=== PATIENT | female | born 1995 | race Caucasian/White ===

== ENCOUNTER 2021-09-15 13:48 | Outpatient (CLI) | payer OTHER, SELFPAY | END 2021-09-15 13:49 | disposition home or self-care (01) | LOC: ANHAUDIO 13:51 | PROVIDERS: Referring Provider Nurse Practitioner Family; Visit Provider Nurse Practitioner Family | DX: H91.92 Unspecified hearing loss, left ear (principal) | CPT/HCPCS: 92557; 92567 ==

== ENCOUNTER 2021-12-27 09:27 | Outpatient (CLI) | payer OTHER, SELFPAY ==
--- NOTE | ~2021-12-27 | US_ITS ---
EXAMINATION: US thyroid DATE: 12/27/2021 10:04 INDICATION: Goiter. . TECHNIQUE: Multiple ultrasound images of the thyroid were obtained. COMPARISON: None. FINDINGS: The right thyroid lobe measures 6.9 x 3.2 x 2.7 cm. The left thyroid lobe measures 6.5 x 2.2 x 3.5 c m. The thyroid demonstrates diffusely heterogeneous hypoechogenicity. Vascularity is increased. IMPRESSION: 1. Heterogeneous, hypervascular thyroid, likely chronic lymphocytic (Brady) thyroiditis. Reviewed, dictated and finalized at location A.
== END 2021-12-27 09:28 | disposition home or self-care (01) ==
LOC: ANHIMG 09:31
PROVIDERS: PCP Nurse Practitioner Family; Visit Provider Nurse Practitioner Family
DX: E04.9 Nontoxic goiter, unspecified (principal)
CPT/HCPCS: 76536

== ENCOUNTER 2022-02-26 13:00 | Outpatient (RCR) | payer OTHER, SELFPAY | END 2022-02-26 23:59 | disposition home or self-care (01) | LOC: ANHAUDIO 13:00 | PROVIDERS: PCP Nurse Practitioner Family; Visit Provider Nurse Practitioner Family | DX: Z46.1 Encounter for fitting and adjustment of hearing aid (principal) | CPT/HCPCS: V5160; V5261 ==

== ENCOUNTER 2022-12-03 13:51 | Outpatient (RCR) | payer OTHER, SELFPAY | END 2023-03-03 23:59 | disposition home or self-care (01) | LOC: ANHLAB 13:51 | PROVIDERS: PCP Nurse Practitioner Family; Visit Provider Obstetrics & Gynecology | DX: N91.2 Amenorrhea, unspecified (principal) | CPT/HCPCS: 36415; 84702 ==

== ENCOUNTER 2022-12-23 19:51 | Emergency (ER) | payer OTHER, SELFPAY ==
[2022-12-23 19:54] VITALS: BP 122/64; PULSE 125; RESP 18; TEMP 36.8; O2SAT 100
--- NOTE | 2022-12-23 20:22 | ECG_ITS ---
Measurements Intervals [place] Rate: 107 P: -14 NV: 132 QRS: -37 QRSD: 104 T: 46 QT: 346 QTc: 462 Interpretive Statements SINUS TACHYCARDIA LEFT ANTERIOR FASCICULAR BLOCK ABNORMAL ECG NO PREVIOUS ECG AVAILABLE FOR COMPARISON Electronically Signed On 12-24-2022 10:21:47 CDT by Erick Garza M.D.
[2022-12-23 20:23] VITALS: BP 116/51; PULSE 116; RESP 16; O2SAT 100
[2022-12-23 20:30] LABS: Basophils Percent Auto 0.2 % (0.2-1.2); Eosinophils Percent Auto 0.2 % (0-4.4); Hematocrit 40.8 % (37.0-47.0); Hemoglobin 13.9 g/dL (12.0-15.0); Immature Granulocyte Absolute 0.03 K/mm3 (0.00-0.031); Immature Granulocyte Percent A 0.3 % (0-0.5); Lymphocytes Absolute Auto 1.55 K/mm3 (0.9-3.2); Lymphocytes Percent Auto 16.9 % (18.3-44.2); Mean Corpuscular HGB Conc 34.1 g/dl (32-36); Mean Corpuscular Hemoglobin 27.7 pg (26-34); Mean Corpuscular Volume 81.4 fl (80-100); Mean Platelet Volume 10.3 fl (7.4-10.4); Monocytes Absolute Auto 0.6 K/mm3 (0.1-0.6); Monocytes Percent Auto 6.8 % (2.6-8.5); Neutrophils Absolute Auto 6.9 K/mm3 (1.3-6.7); Neutrophils Percent Auto 75.6 % (45.5-73.1); Platelet Count Result 249 k/mm3 (150-375); Red Blood Count 5.01 M/mm3 (4.2-5.4); Red Cell Distribution Width 13.2 % (11.5-14.5); White Blood Count 9.2 K/mm3 (4.5-10.0)
[2022-12-23] MEDS: SODIUM CHLORIDE 0.9% IV 1,000 ML 999 ML IV CONT ×2 (20:30→21:56)
[2022-12-23] MEDS: diphenhydrAMINE HCl INJ 50 MG/ML VIAL 25 MG IV PUSH (20:30)
[2022-12-23] MEDS: METOCLOPRAMIDE HCL INJ 10 MG/2 ML VIAL IV PUSH (20:30)
--- NOTE | 2022-12-23 20:30 | ED.GENADULT ---
HPI - General Adult General Chief complaint: Nausea/Vomiting/Diarrhea Stated complaint: 9 weeks /vomiting Time Seen by Provider: 12/23/22 20:13 Source: patient Mode of arrival: ambulatory Limitations: no limitations History of Present Illness HPI narrative: This is a 27-year-old female who is about 9 weeks and presents to the ED with chief complaint of nausea/vomiting onset today. Patient states that this has been an ongoing problem for the past several weeks. States her OB has had her on Reglan which has helped but she has been unable to take anything by mouth today. States her last meal was last night. Reports some upper abdominal cramping, feels it is due to all the retching today. States she has had a episode of emesis almost every 30 minutes. She reports additional complaints of headache but has been unable to take Tylenol. Denies fevers, chills, chest pain, shortness of breath, diarrhea, cough. Denies vaginal symptoms. Denies urinary symptoms. Related Data Allergies Allergy/AdvReac Type Severity Reaction Status Date / Time Penicillins Allergy Rash Verified 12/23/22 19:53 Review of Systems Review of Systems: CONSTITUTIONAL: Denies fever, chills, or sweats. EYES: Denies visual changes, redness, or discharge. ENT: Denies rhinorrhea, congestion, sore throat, or otalgia. CARDIOVASCULAR: Denies chest pain, palpitations, or edema. RESPIRATORY: Denies cough or dyspnea. GASTROINTESTINAL: Denies abdominal pain, nausea, vomiting, or diarrhea. GENITOURINARY: Denies dysuria or hematuria. SKIN: Denies rash or itching. MUSCULOSKELETAL: Denies back pain, joint pain, or myalgia. NEUROLOGIC: Denies headache, numbness, dizziness, or weakness. PSYCHIATRIC: Denies anxiety or depression. [facility] Surgical History Surgical History (Updated 09/26/21 @ 13:17 by Jayne Moreno MA) H/O gynecological procedure Nexplanon insertion H/O reconstruction of anterior cruciate ligament tear History of tonsillectomy and adenoidectomy S/P middle ear reconstruction Family History Family History (Updated 09/26/21 @ 13:15 by Jayne Moreno MA) Other Depression Diabetes mellitus Hypertension Exam Narrative: GENERAL: Appears ill. Appears dry. HEAD: Normocephalic, atraumatic. EYES: PERRLA and EOMI. ENT: Nares clear, no rhinorrhea or epistaxis. Mucous membranes moist. Oropharynx without tonsillar hypertrophy exudate or other lesions. NECK: Supple. No adenopathy or masses. CHEST: No respiratory distress. Clear to auscultation. No wheezes rales or rhonchi HEART: Tachycardic rate to 125. Regular rhythm. No murmur heard. Normal peripheral pulses. ABDOMEN: Soft, nontender, nondistended, normal active bowel sounds. MSK: Normal range of motion. No edema. SKIN: Warm, dry, no rash. NEURO: Alert and oriented x3. No focal deficits. PSYCH: Normal mood and affect. Course Course Emergency Course: Reevaluation 2120: Patient feeling much better, headache improved and not feeling as nauseous. Vital Signs Vital signs: Vital Signs Temperature 98.3 F 12/23/22 19:54 Pulse Rate 125 H 12/23/22 19:54 Respiratory Rate 18 12/23/22 19:54 Blood Pressure 122/64 12/23/22 19:54 Pulse Oximetry 100 12/23/22 19:54 Oxygen Delivery Room Air 12/23/22 19:54 Temperature 98.3 F 12/23/22 19:54 Pulse Rate 115 H 12/23/22 21:56 Respiratory Rate 16 12/23/22 21:56 Blood Pressure 105/50 L 12/23/22 21:24 Pulse Oximetry 100 12/23/22 21:56 Oxygen Delivery Room Air 12/23/22 19:54 Medical Decision Making MDM Narrative Medical decision making narrative: This is a 27-year-old female who is 9 weeks and presents to the ED with chief complaint of nausea and vomiting along with a headache. Vitals are initially stable but show tachycardia to 125. She appears dry on exam. Otherwise exam is benign. Lab work is largely unremarkable. Urinalysis has bacteria and white cells but is contaminated. Cult
[2022-12-23 20:41] LABS: Alanine Aminotransferase 23 U/L (6-35); Albumin Level 4.1 g/dL (3.5-5.1); Alkaline Phosphatase 87 U/L (38-126); Anion Gap 7 mmol/L (8-16); Aspartate Amino Transferase 25 U/L (14-36); Bilirubin,Total 0.7 mg/dL (0.2-1.3); Blood Urea Nitrogen 13 mg/dL (7-17); Calcium 8.9 mg/dL (8.4-10.2); Carbon Dioxide 26 mmol/L (22-30); Chloride 103 mmol/L (98-107); Estimated CRCL calculation 260 ml/min; Estimated Glomerular Filt Rate > 60; Glucose 101 mg/dL (65-110); Lipase 39 U/L (23-300); Potassium 3.8 mmol/L (3.4-5.0); Sodium 136 mmol/L (137-145)
[2022-12-23 21:06] LABS: Appearance Urine Turbid (Clear); Bacteria Urine 4+ /hpf; Bilirubin Urine Negative (Negative); Color Urine Yellow (Yellow); Glucose Urine UA Negative (Negative); Ketones Urine 2+ mg/dL (Negative); Leukocyte Esterase Ur 2+ LEU/UL (Negative); Mucus Urine Present /lpf; Need Manual Microscopic Reviewed; Nitrate Urine Negative (Negative); Protein Urine 2+ mg/dL (Negative); Specific Grav Ur 1.027 (1.001-1.035); Squamous Epithelial Cell Urine Many /hpf (Few); WBC Urine >100 /hpf
[2022-12-23 21:07] LABS: Add Urine Microscopic? YES
[2022-12-23 21:24] VITALS: BP 105/50
[2022-12-23 21:56] VITALS: PULSE 115; RESP 16; O2SAT 100
== END 2022-12-23 23:16 | disposition home or self-care (01) ==
PROVIDERS: Emergency Provider Physician Assistant; PCP Nurse Practitioner Family
DX: O21.0 Mild hyperemesis gravidarum (principal); Z3A.09 9 weeks gestation of pregnancy
CPT/HCPCS: 36415; 80053; 81001; 83690; 85025; 87077; 87086; 87088; 93005; 96361; 96365; 96375; 99284; J0131; J1200; J2765; J7030

== ENCOUNTER 2023-02-14 08:43 | Emergency (ER) | payer OTHER, SELFPAY ==
--- NOTE | ~2023-02-14 | US_ITS ---
EXAMINATION: US OB limited DATE: 02/14/2023 10:13 INDICATION: Right lower quadrant abdominal pain during second trimester . Ovarian cyst. TECHNIQUE: Real-time ultrasound of the pelvis was performed. The interpreting radiologist was not pre sent for the study. COMPARISON: None. FINDINGS: There are 2 living fetuses with thick membrane consistent with a dichorionic diamniotic pr egnancy. Fetus A is positioned on the maternal left and closer to the cervix in breech presentation. Fetus B is on the maternal right, closer to the fundus and in vertex presentation. Anterior placenta which appears to be associated with fetus B and posterior placenta which appears to be associated wit h fetus A. heart rate is 150 beats per minute (bpm) for fetus a and 151 bpm for fetus B. The am niotic fluid volume is subjectively normal. 14.5 x 9.0 x 13.4 cm simple appearing anechoic left adnex al cyst. IMPRESSION: 1. Dichorionic, diamniotic with 2 living fetuses. 2. Simple appearing 14.5 cm left adnexal cyst. Reviewed, dictated and finalized at location A.
[2023-02-14 08:45] VITALS: BP 135/59; PULSE 121; RESP 18; TEMP 36.8; O2SAT 99
[2023-02-14 09:58] LABS: Basophils Percent Auto 0.3 % (0.2-1.2); Eosinophils Absolute Auto 0.1 K/mm3 (0-0.3); Eosinophils Percent Auto 0.8 % (0-4.4); Hematocrit 36.6 % (37.0-47.0); Hemoglobin 12.4 g/dL (12.0-15.0); Immature Granulocyte Absolute 0.02 K/mm3 (0.00-0.031); Immature Granulocyte Percent A 0.3 % (0-0.5); Lymphocytes Percent Auto 18.1 % (18.3-44.2); Mean Corpuscular HGB Conc 33.9 g/dl (32-36); Mean Corpuscular Hemoglobin 28.6 pg (26-34); Mean Corpuscular Volume 84.3 fl (80-100); Mean Platelet Volume 10.6 fl (7.4-10.4); Monocytes Absolute Auto 0.6 K/mm3 (0.1-0.6); Monocytes Percent Auto 7.9 % (2.6-8.5); Neutrophils Absolute Auto 5.2 K/mm3 (1.3-6.7); Neutrophils Percent Auto 72.6 % (45.5-73.1); Platelet Count Result 219 k/mm3 (150-375); Red Blood Count 4.34 M/mm3 (4.2-5.4); Red Cell Distribution Width 13.8 % (11.5-14.5); White Blood Count 7.2 K/mm3 (4.5-10.0)
[2023-02-14 10:08] LABS: Appearance Urine Clear (Clear); Bacteria Urine 2+ /hpf; Bilirubin Urine Negative (Negative); Blood Urine Negative (Negative); Color Urine Yellow (Yellow); Glucose Urine UA Negative (Negative); Ketones Urine Negative (Negative); Leukocyte Esterase Ur 1+ LEU/UL (Negative); Nitrate Urine Negative (Negative); Non Pathogenic Casts 0-2; Protein Urine Negative (Negative); RBC Urine 0-2 /hpf (0-2); Specific Grav Ur 1.017 (1.001-1.035); Squamous Epithelial Cell Urine Occasional /hpf (Few); pH Urine 6.5 (5.0-9.0)
[2023-02-14 10:10] LABS: Alanine Aminotransferase 14 U/L (6-35); Albumin Level 3.5 g/dL (3.5-5.1); Alkaline Phosphatase 66 U/L (38-126); Anion Gap 8 mmol/L (8-16); Aspartate Amino Transferase 20 U/L (14-36); Bilirubin,Total 0.5 mg/dL (0.2-1.3); Blood Urea Nitrogen 10 mg/dL (7-17); Calcium 8.8 mg/dL (8.4-10.2); Carbon Dioxide 21 mmol/L (22-30); Chloride 107 mmol/L (98-107); Estimated CRCL calculation 266 ml/min; Estimated Glomerular Filt Rate > 60; Glucose 94 mg/dL (65-110); Potassium 3.6 mmol/L (3.4-5.0); Sodium 136 mmol/L (137-145)
[2023-02-14 10:17] LABS: Add Urine Microscopic? YES
--- NOTE | 2023-02-14 10:18 | ED.ABDPAIN ---
HPI - Abdominal Pain General Chief Complaint: Abdominal Pain Stated Complaint: preg abd pain Time Seen by Provider: 02/14/23 09:02 Source: patient and old records reviewed Mode of arrival: ambulatory Limitations: no limitations History of Present Illness HPI narrative: Patient is a 27-year-old female who presents ED with report of right lower abdominal pain. Patient is G2, P1, currently approximately 17 weeks gestation with twin . Patient has an an ultrasound appointment on Saturday with Dr. Lovett, at which time everything was noted to be normal with patient's babies. She notes her last 2 ultrasounds have commented on a right ovarian cyst, which has increased in size up to 10 cm. Patient reports she was woken up around 5:30 AM this morning with pain in her right lower abdomen. Pain worse with walking/movement. She has not tried anything for the pain yet. She does report some nausea, denies vomiting. Denies urinary symptoms. Denies fever. Denies any vaginal bleeding or leakage of fluid. Related Data Allergies Allergy/AdvReac Type Severity Reaction Status Date / Time Penicillins Allergy Rash Verified 02/14/23 08:44 Review of Systems Review of Systems: CONSTITUTIONAL: Denies fever, chills, or sweats. CARDIOVASCULAR: Denies chest pain. RESPIRATORY: Denies dyspnea. GASTROINTESTINAL: See HPI. GENITOURINARY: Denies vaginal bleeding, dysuria or hematuria. SKIN: Denies rash or itching. MUSCULOSKELETAL: Denies back pain, joint pain, or myalgia. All systems reviewed & are unremarkable except as noted in HPI and below PMFSH Surgical History Surgical History H/O gynecological procedure Nexplanon insertion H/O reconstruction of anterior cruciate ligament tear History of tonsillectomy and adenoidectomy S/P middle ear reconstruction Family History Family History (Updated 09/26/21 @ 13:15 by Jayne Sultana MA) Other Depression Diabetes mellitus Hypertension Exam Narrative: GENERAL: Well appearing, obese with BMI of 30.3, non-toxic, in no acute distress. HEAD: Normocephalic, atraumatic. NECK: Supple. No adenopathy, no masses. RESPIRATORY: Airway patent, respirations nonlabored. Clear to auscultation bilaterally, no rales, rhonchi, wheezing. CARDIOVASCULAR: Borderline tachycardic with regular rhythm without murmurs, rubs, or gallops. Radial pulses 2+ and equal bilaterally. ABDOMINAL: Soft, tenderness to palpation in right lower abdomen/pelvic region, reproducing pain. Mild tenderness extending into suprapubic region, nondistended, no hepatosplenomegaly. Normoactive BS. MUSCULOSKELETAL: Moves all extremities. Strength/ROM intact without gross deformities. SKIN: Warm, dry, normal color. No rashes. NEURO: A&O X3. Speech clear. Cranial nerves II-XII grossly intact. Steady gait. No ataxic movements. PSYCHIATRIC: Appropriate mood and affect. Normal interaction. Course Vital Signs Vital signs: Vital Signs Temperature 98.2 F 02/14/23 08:45 Pulse Rate 121 H 02/14/23 08:45 Respiratory Rate 18 02/14/23 08:45 Blood Pressure 135/59 L 02/14/23 08:45 Pulse Oximetry 99 02/14/23 08:45 Oxygen Delivery Room Air 02/14/23 08:45 Temperature 98.2 F 02/14/23 08:45 Pulse Rate 103 H 02/14/23 11:36 Respiratory Rate 18 02/14/23 11:36 Blood Pressure 118/62 02/14/23 11:36 Pulse Oximetry 100 02/14/23 11:36 Oxygen Delivery Room Air 02/14/23 08:45 MDM - Abdominal Pain MDM Narrative Medical decision making narrative: Patient presented to ED with right lower abdominal pain, currently 17 weeks twin gestation. No previous issues with , but previous ultrasounds have shown right ovarian cyst. Patient tachycardic upon arrival, likely related to pain. She had not tried anything for pain prior to arrival. Will give Tylenol. Patient denies any leakage of fluid, vaginal bleeding at this time. CBC without leukocytosis. W
[2023-02-14] MEDS: ACETAMINOPHEN 500 MG TABLET 1000 MG PO (10:39)
[2023-02-14] MEDS: SODIUM CHLORIDE 0.9% IV 1,000 ML 999 ML IV CONT (10:40)
[2023-02-14] MEDS: METOCLOPRAMIDE HCL INJ 10 MG/2 ML VIAL IV PUSH (10:40)
[2023-02-14 11:36] VITALS: BP 118/62; PULSE 103; RESP 18; O2SAT 100
== END 2023-02-14 13:01 | disposition home or self-care (01) ==
PROVIDERS: Emergency Provider Physician Assistant; PCP Nurse Practitioner Family
DX: O26.892 Other specified pregnancy related conditions, second trimester (principal); R10.31 Right lower quadrant pain; R82.71 Bacteriuria; O30.042 Twin pregnancy, dichorionic/diamniotic, second trimester; O34.82 Maternal care for other abnormalities of pelvic organs, second trimester; N83.292 Other ovarian cyst, left side; Z3A.17 17 weeks gestation of pregnancy
CPT/HCPCS: 36415; 76815; 80053; 81001; 85025; 87077; 87086; 87088; 96361; 96374; 99284; A9270; J2765; J7030

== ENCOUNTER 2023-05-23 10:08 | Outpatient (RCR) | payer OTHER, SELFPAY ==
[2023-05-23 12:28] VITALS: BP 115/57; PULSE 87
== END 2023-08-21 23:59 | disposition home or self-care (01) ==
LOC: ANHOBOP 10:08
PROVIDERS: PCP Nurse Practitioner Family; Visit Provider Obstetrics & Gynecology
DX: O36.8130 Decreased fetal movements, third trimester, not applicable or unspecified (principal); Z3A.30 30 weeks gestation of pregnancy
CPT/HCPCS: 59025

== ENCOUNTER 2023-06-15 11:31 | Observation (INO) | payer OTHER, SELFPAY ==
[2023-06-15 11:59] VITALS: BP 133/76; PULSE 112
[2023-06-15 12:02] VITALS: BMI 32.5
--- NOTE | 2023-06-15 12:03 | OBADM ---
This patient, Roz Jeffrey, admitted to the OB room OB Post 116 for observation. Patient/family oriented to hospital policies and general routines including ID bracelet, bed and alarms, visiting hours, pain management, procedures, bathroom and other care routines, personal items, smoking policy, room service/diet, and visiting hours. Patient/Family are encouraged to report perceived risks to care and to ask questions if they do not understand what they are told or what they should do.
[2023-06-15 12:30] VITALS: BP 128/74; PULSE 110
[2023-06-15 12:45] VITALS: TEMP 36.6
--- NOTE | 2023-06-15 14:02 | PC.NURSE ---
1300--Reported negative ROM+ and NST to Dr. Geronimo. DC orders given.
--- NOTE | 2023-06-18 09:25 | PM.OBTRLD ---
OB - Triage/Final Diagnosis Visit Information Comments/Additional reasons for admission: I have assessed the risk for this patient, Roz Jeffrey, and determined that she would benefit from observation care. Final Diagnosis (1) Vaginal discharge during : Code(s): O26.899 - Other specified related conditions, unspecified trimester; N89.8 - Other specified noninflammatory disorders of vagina Status: Acute
== END 2023-06-15 13:13 | disposition home or self-care (01) ==
PROVIDERS: Admitting Provider Obstetrics & Gynecology; PCP Nurse Practitioner Family; Visit Provider Obstetrics & Gynecology
DX: O26.893 Other specified pregnancy related conditions, third trimester (principal); N89.8 Other specified noninflammatory disorders of vagina; Z3A.34 34 weeks gestation of pregnancy
CPT/HCPCS: 84112; G0378; G0379

== ENCOUNTER 2023-06-21 03:10 | Inpatient (IN) | payer OTHER, SELFPAY ==
[2023-06-21] VITALS (59 sets, daily range): BP systolic 94–126; BP diastolic 36–111; PULSE 54–139; RESP 16–20; TEMP 36.8–37.4; O2SAT 69–100
[2023-06-21] MEDS: OXYTOCIN 30 UNITS/NS 500 ML 30 UNITS/500 ML BAG 999 UNITS IV CONT (04:25)
[2023-06-21 04:49] LABS: Basophils Percent Auto 0.3 % (0.2-1.2); Eosinophils Absolute Auto 0.2 K/mm3 (0-0.3); Eosinophils Percent Auto 1.4 % (0-4.4); Hematocrit 37.3 % (37.0-47.0); Hemoglobin 12.1 g/dL (12.0-15.0); Immature Granulocyte Absolute 0.06 K/mm3 (0.00-0.031); Immature Granulocyte Percent A 0.5 % (0-0.5); Lymphocytes Absolute Auto 2.42 K/mm3 (0.9-3.2); Lymphocytes Percent Auto 20.6 % (18.3-44.2); Mean Corpuscular HGB Conc 32.4 g/dl (32-36); Mean Corpuscular Hemoglobin 27.1 pg (26-34); Mean Corpuscular Volume 83.4 fl (80-100); Mean Platelet Volume 10.8 fl (7.4-10.4); Monocytes Absolute Auto 1.3 K/mm3 (0.1-0.6); Monocytes Percent Auto 10.8 % (2.6-8.5); Neutrophils Absolute Auto 7.8 K/mm3 (1.3-6.7); Neutrophils Percent Auto 66.4 % (45.5-73.1); Platelet Count Result 314 k/mm3 (150-375); Red Blood Count 4.47 M/mm3 (4.2-5.4); Red Cell Distribution Width 13.7 % (11.5-14.5); White Blood Count 11.8 K/mm3 (4.5-10.0)
[2023-06-21] MEDS: MIDAZOLAM HCL (*CRX) 2 MG/2 ML VIAL IV PUSH (05:02)
[2023-06-21] MEDS: OXYTOCIN 30 UNITS/NS 500 ML 30 UNITS/500 ML BAG 125 UNITS IV CONT (05:25)
[2023-06-21] MEDS: LACTATED RINGERS 1,000 ML 999 ML IV CONT (05:25)
--- NOTE | 2023-06-21 05:35 | PM.OBPRVD ---
OB - Vaginal Delivery Note Procedure Delivery date: 06/21/23 Events: Multiple Gestation Intrapartal Events: Ineffetive Pushing/Maternal Exhaustion Induction method: None Delivery augmentation: Pitocin Delivery monitor: External FHT and External Uterine Route of delivery: Episiotomy description: None Laceration Description: None Quantitative Blood Loss (ml): 750 Anesthesia type: None Disposition: Floor Complications: Other complications (Retained placenta) Narrative: under medical anesthesia care The extraction of retained placental pieces was performed. The intrauterine cavity was cleared of all clots and debris and placenta Baby Weeks of gestation at delivery: 35 Twins 2: Date of : 06/21/23 Time of : 03:46 Weeks of gestation at delivery: 35 Weight (pounds): 5 Weight (ounces): 0 presentation: vertex position: Left Occiput Anterior Placental delivery description: Manual Removal 1: Date of : 06/21/23 Time of : 04:42 Weeks of gestation at delivery: 35 Placental delivery description: Manual Removal
--- NOTE | 2023-06-21 05:36 | P.PNAN_ITS ---
Anes - Eval Pre Procedure Procedure: removal of retained placenta Date/Time: 06/21/23 05:36 Pre Op Diagnosis: Leaking Fluid Patient Data Age: 27 Gender: F Height: Weight: Last Vital Signs Pulse 99 06/21/23 05:33 BP 102/55 L 06/21/23 05:33 Pulse Ox 100 06/21/23 05:33 Allergies Allergy/AdvReac Type Severity Reaction Status Date / Time Penicillins Allergy Rash Verified 06/15/23 12:05 Home Medications Medication Instructions Recorded Confirmed Type One Daily 1 PO DAILY 06/15/23 History propylthiouracil 50 mg tablet mg 06/15/23 History Laboratory Tests 06/21/23 04:39 WBC 11.8 H K/mm3 (4.5-10.0) RBC 4.47 M/mm3 (4.2-5.4) Hgb 12.1 g/dL (12.0-15.0) Hct 37.3 % (37.0-47.0) MCV 83.4 fl (80-100) MCH 27.1 pg (26-34) MCHC 32.4 g/dl (32-36) RDW 13.7 % (11.5-14.5) Plt Count 314 k/mm3 (150-375) MPV 10.8 H fl (7.4-10.4) Immature Gran % (Auto) 0.5 % (0-0.5) Neut % (Auto) 66.4 % (45.5-73.1) Lymph % (Auto) 20.6 % (18.3-44.2) [place] % (Auto) 10.8 H % (2.6-8.5) Eos % (Auto) 1.4 % (0-4.4) Baso % (Auto) 0.3 % (0.2-1.2) Lymph # (Auto) 2.42 K/mm3 (0.9-3.2) [place] # (Auto) 1.3 H K/mm3 (0.1-0.6) Eos # (Auto) 0.2 K/mm3 (0-0.3) Baso # (Auto) 0.0 K/mm3 (0.0-0.1) Abs Immat Gran (auto) 0.06 H K/mm3 (0.00-0.031) Absolute Neuts (auto) 7.8 H K/mm3 (1.3-6.7) Absolute Nucleated RBC 0.0 K/mm3 (0.0-0.012) Nucleated RBC % 0.0 % (0.0-0.2) RPR Pending Hep Bs Antigen Pending HIV 1&2 Ab/P24 Ag 4thGn Pending Rubella IgG Antibody Pending Blood Type A Positive Antibody Screen Pending Patient hx anesthesia problems: none Family hx anesthesia problems: none Results Review: All pre-operative results and documents have been reviewed as part of the pre- operative evaluation. Exam Day of Procedure 06/21/23 05:36 Patient weight: obese Heart: regular rate and rhythm Lungs: normal air movement Airway: Mallampati scale Neurological: alert and oriented
[2023-06-21] MEDS: miSOPROStol 200 MCG TABLET 1000 MCG (05:40)
[2023-06-21 05:48] LABS: Rubella IgG Antibody 12.1 IU/ML
[2023-06-21 05:52] LABS: HIV 1/2 Ab P24 Ag Result Negative (Negative)
[2023-06-21 05:58] LABS: Hepatitis B Surface Antigen Negative (Negative)
--- NOTE | 2023-06-21 06:47 | PC.NURSE ---
Pt arrived to L&D at 0310 with suspected ROM. Pt was put in room 120 and hooked up to external heart monitors for baby A and baby B and TOCO applied. [id number]: Baby A FHR- 135 Baby B FHR- 140 Contractions: 1-2 minutes in frequency/ 40-70 minutes of duration 0335: Cervical check performed by Armando Virk RN and confirmed by Monroe Underwood RN, pt complete and decided to move patient to a delivery room.
[2023-06-21] MEDS: ACETAMINOPHEN 325 MG TABLET 650 MG PO (08:23)
[2023-06-21] MEDS: IBUPROFEN 600 MG TABLET PO ×2 (12:41→23:10)
[2023-06-21 14:01] LABS: Rapid Plasma Reagin Non-Reactive (NonReactive)
[2023-06-22 04:48] LABS: Hematocrit 26.3 % (37.0-47.0); Hemoglobin 8.4 g/dL (12.0-15.0)
--- NOTE | 2023-06-22 09:34 | PM.OBPNVD ---
OB - PN: Subj Subjective Date/time seen: 06/22/23 09:34 Patient comments: no complaints, pain well controlled, incisional pain, tolerating diet and flatus present OB - PN: Obj Data Labs 06/22/23 04:41 Labs: Laboratory Results - last 24 hr 06/21/23 06/22/23 04:39 04:41 Hgb 8.4 L D Hct 26.3 L RPR Non-reactive OB - PN A/P Plan day: 1 Plan: routine care Comments: No problems, routine care Time Spent With Patient Time: Total time spent is greater than 50% in coordination of care (as documented) at patient's floor/unit and/or counseling patient: Exam Const: General: comfortable, no acute distress and alert Resp: Effort & Inspection: normal respiratory effort Auscultation: no crackles, no rales and no rhonchi Cardio: Rate: regular rate Heart sounds: no click, no murmurs and no rubs GI: Inspection: non-distended GI Palp: No Tenderness to palpation present (GI) Auscultation: normal bowel sounds Other: Incision - CDI Extrem: General: normal to inspection, no pedal edema and no calf tenderness
[2023-06-22] MEDS: MULTIVIT/MIN/PREN/FOL AC/IRON TABLET 1 TAB PO (09:45)
[2023-06-22] MEDS: IBUPROFEN 600 MG TABLET PO ×2 (09:45→16:30)
[2023-06-22] MEDS: POLYSACCHARIDE IRON COMPLEX 150 MG CAPSULE PO ×2 (09:45→16:30)
[2023-06-22] MEDS: DOCUSATE SODIUM 100 MG CAPSULE PO ×2 (09:45→16:30)
[2023-06-22 10:06] VITALS: BP 121/59; PULSE 95; RESP 14; TEMP 36.7; O2SAT 100
[2023-06-22 16:30] VITALS: BP 124/66; PULSE 89; RESP 18; TEMP 36.7; O2SAT 100
[2023-06-22 20:00] VITALS: BP 124/73; PULSE 97; RESP 16; TEMP 36.1
[2023-06-23 08:00] VITALS: BP 124/69; PULSE 89; RESP 16; TEMP 37.1; O2SAT 100
[2023-06-23] MEDS: MULTIVIT/MIN/PREN/FOL AC/IRON TABLET 1 TAB PO (08:30)
[2023-06-23] MEDS: DOCUSATE SODIUM 100 MG CAPSULE PO (08:30)
[2023-06-23] MEDS: POLYSACCHARIDE IRON COMPLEX 150 MG CAPSULE PO (08:30)
[2023-06-23] MEDS: ACETAMINOPHEN 325 MG TABLET 650 MG PO (08:56)
--- NOTE | 2023-06-23 11:48 | PM.OBPNVD ---
OB - PN: Subj Subjective Date/time seen: 06/23/23 11:48 Patient comments: no complaints, pain well controlled and tolerating diet OB - PN: Obj Data Labs 06/22/23 04:41 OB - PN A/P Plan day: 2 Plan: routine care and discharge home Time Spent With Patient Time: Total time spent is greater than 50% in coordination of care (as documented) at patient's floor/unit and/or counseling patient: Exam Const: General: comfortable and no acute distress Resp: Effort & Inspection: normal respiratory effort Auscultation: no rales, no rhonchi and no wheezes Cardio: Rate: regular rate Heart sounds: no click, no murmurs and no rubs GI: GI Palp: Yes Soft to palpation and No Tenderness to palpation present (GI) Auscultation: normal bowel sounds Extrem: General: normal to inspection, no pedal edema and no calf tenderness
--- NOTE | 2023-06-23 11:49 | PM.OBDSVD ---
DS: Admitting Diagnosis Discharge Date June 23, 2023 Admitting Diagnosis twins, pre term labor DS: Discharge Diagnosis Discharge Diagnosis (1) Twin delivered vaginally: Code(s): O30.009 - Twin , unspecified number of placenta and unspecified number of amniotic sacs, unspecified trimester Status: Acute OB - DS: Summary OB Procedures : None OB Procedures Intrapartum: Spontaneous Vag Delivery OB Procedures: : None Peripartum Data Laceration Description: None Episiotomy description: None Time Spent with Patient Time attestation: Total time spent providing and/or coordinating discharge services: DS: Data Data Completed and Pending Pending studies at discharge: Pending at discharge 06/21/23 05:25 Surgical [PTH] Routine Discharge Plan Discharge Consulting providers: Herminia Eastman Discharging Clinician: Davis Wilson Patient Disposition: Home, Self-Care Activity: as tolerated Diet: as tolerated and regular Discharge Instructions: Education: Mom and Baby Guide Given to: Mother Follow-Up: Call your delivering provider's office for an appointment to be seen in: 4 Weeks Post visit Appointment Date/Time: June 25, 2023 at 9:00 am. Nurse will come to your room, if the babies have not been discharged yet. What to expect at your follow-up visit: Blood Pressure Check Physical Assessment BREAST CARE: * Wear a snug supportive bra. * For engorgement discomfort: Bottle Feeding: * May apply ice packs EPISIOTOMY/PERINEAL CARE: * Until bleeding stops, use your alexia bottle after urinating * Change your pad frequently throughout the day * You may take sitz baths several times a day (fill your bathtub with warm water and soak for 20 minutes.) Do NOT bathe in the water * No tub baths until seen by your physician - You may shower ACTIVITY: * Rest as much as possible. * Do not exercise or lift anything heavier than your baby (such as laundry or other children.) * Avoid stairs or driving as much as possible. * Do not put anything into the vagina. No douching, tampons, or sexual activity until seen by physician. NOTIFY PHYSICIAN IF YOU HAVE ANY QUESTIONS OR IF ANY OF THE FOLLOWING SYMPTOMS OCCUR: * If your vaginal area becomes red, swollen, or more painful than what you have experienced in the hospital. * If your vaginal bleeding becomes foul smelling. * If your vaginal bleeding becomes more heavy than a period or if your bleeding changes from pink to bright red. However, you may pass an occasional walnut-sized clot once or twice for the first week . * If you experience a sharp, shooting pain in your calves. * If you discover a hard, reddened area on your breast or if you experience flu-like symptoms. DIET: * Eat regular, well-balanced meals. * Drink plenty of fluids daily. Stand Alone Forms: General Discharge Information Follow-up/Referrals: Davis Wilson MD [Physician] - 4 Weeks Discharge Medications: New ibuprofen 800 mg tablet 800 mg PO TID Qty: 20 0RF Continued propylthiouracil 50 mg tablet One Daily 1 PO DAILY No Action nitrofurantoin monohyd/m-cryst 100 mg capsule 100 mg PO Q12H 5 Days Qty: 10 0RF Rx Instructions: must administer with a meal/food Date of admission: 06/21/23 03:10 Primary Care Provider: Patricia Ibarra Admitting Provider: Davis Wilson Attending physician on admission: Davis Wilson Condition: Stable
[2023-06-24 11:03] VITALS: BP 133/72; PULSE 88; RESP 18; O2SAT 100
== END 2023-06-23 17:00 | disposition home or self-care (01) | DRG 560 ==
LOC: ANHLDR 03:41 → ANHOB2 08:56
PROVIDERS: Admitting Provider Obstetrics & Gynecology; PCP Nurse Practitioner Family; Visit Provider Obstetrics & Gynecology
DX: O30.043 Twin pregnancy, dichorionic/diamniotic, third trimester (principal); Z37.2 Twins, both liveborn; Z3A.35 35 weeks gestation of pregnancy; O62.3 Precipitate labor; O60.14X1 Preterm labor third trimester with preterm delivery third trimester, fetus 1; O60.14X2 Preterm labor third trimester with preterm delivery third trimester, fetus 2; O75.81 Maternal exhaustion complicating labor and delivery; O73.0 Retained placenta without hemorrhage
CPT/HCPCS: 36415; 85014; 85018; 85025; 86592; 86703; 86762; 86850; 86900; 86901; 87340; 88307; A9270; G0432; J2250; J2590; J2704; J3010; J7120